=== PATIENT | male | born 1980 | race Caucasian/White ===

== ENCOUNTER 2019-08-25 10:07 | Outpatient (CLI) | payer BC, SELFPAY ==
--- NOTE | 2019-08-25 | XR_ITS ---
WS: [id number] LUMBAR SPINE TECHNIQUE: 5 views of the lumbar spine CLINICAL INFORMATION: ACUTE LOW BACK PAIN W SCIATICA; HX OF SURGERY COMPARISON: None. FINDINGS: Five [id number] lumbar vertebral bodies. Mild lumbar curve convex left. Slight reversal the norm al cervical lordosis. No instability on flexion-extension. Disc space heights are well preserved. No compression fractures. No visualized pars defects. No spond ylolisthesis. Visualized sacroiliac joints are normal. Normal visualized soft tissues. Partially visu alized bowel gas pattern is normal. XR/XR lumbar spine min 4V [id number] IMPRESSION: No instability on flexion-extension
== END 2019-08-25 10:08 | disposition home or self-care (01) ==
LOC: RADOUTREAD 10:53
PROVIDERS: Family Provider Family Medicine; PCP Family Medicine; Visit Provider Family Medicine
DX: Z76.89 Persons encountering health services in other specified circumstances (principal)

== ENCOUNTER 2019-12-08 09:03 | Outpatient (CLI) | payer BC, SELFPAY ==
--- NOTE | 2019-12-08 09:21 | MR_ITS ---
WS: [id number] MRI LUMBAR SPINE NONCONTRAST TECHNIQUE: Sagittal T1, T2 and STIR imaging. Axial T1 and T2 imaging. CLINICAL INFORMATION: LOW BACK PAIN/HX OF L-SPINE SURGERY COMPARISON: MRI lumbar spine May 14, 2018 FINDINGS: Mild lumbar curve. No acute compression. Mild disc bulging L5-S1. No high-grade central canal stenosi s. L1-L2: Normal L2-L3: Mild annular bulging. Mild facet arthropathy. Mild left and no significant right foraminal micky rowing. Spinal canal is patent. Mild facet arthropathy. L3-L4: Minimal annular bulging. Mild left foraminal narrowing. Spinal canal and foramen are patent. M ild facet arthropathy. L4-L5: Mild annular bulging. Mild right greater than left foraminal narrowing. Mild facet arthropathy . Spinal canal is patent. L5-S1: Small shallow central disc protrusion with a tiny annular fissure. Encroachment traversing S1 nerve roots bilaterally with narrowing of the subarticular recess. Spinal canal is patent. Mild bilat eral foraminal narrowing right greater than left. Moderate facet arthropathy. Visualized pelvic bony structures: Normal. Paravertebral soft tissues: Normal. MR/MR lumbar spine wo con* [id number] IMPRESSION: 1. Mild lumbar curve. No acute compression. No high-grade central canal stenos is. 2. Shallow central disc protrusion L5-S1 with encroachment traversing S1 nerve roots bilaterally. 3. Mild right greater than left L5-S1 foraminal narrowing. 4. Mild left L3-4 and right L4-5 foraminal narrowing. 5. Mild to moderate facet arthropathy worse L4-5 and L5-S1.
== END 2019-12-08 09:04 | disposition home or self-care (01) ==
LOC: RADWPI 09:21
PROVIDERS: Family Provider Family Medicine; PCP Family Medicine; Visit Provider Nurse Practitioner
DX: M96.1 Postlaminectomy syndrome, not elsewhere classified (principal); M51.27 Other intervertebral disc displacement, lumbosacral region; M48.061 Spinal stenosis, lumbar region without neurogenic claudication; M48.07 Spinal stenosis, lumbosacral region; M47.817 Spondylosis without myelopathy or radiculopathy, lumbosacral region
CPT/HCPCS: 72148; A9579

== ENCOUNTER 2020-04-20 12:00 | Outpatient (CLI) | payer BC, SELFPAY | END 2020-04-20 12:01 | disposition home or self-care (01) | LOC: SLEEP 04-21 12:04 | PROVIDERS: Family Provider Family Medicine; PCP Family Medicine; Visit Provider Anesthesiology Pain Medicine | DX: G47.10 Hypersomnia, unspecified (principal) | CPT/HCPCS: G0399 ==

== ENCOUNTER 2021-03-10 09:25 | Emergency (ER) | payer OTHER, SELFPAY ==
--- NOTE | 2021-03-10 09:26 | ECG_ITS ---
[facility] Test Date: 2021-03-10 Pat Name: Balwinder Solo Department: Room: Gender: Male Pet Care Technician: : 1980 Requested By: Jacques Gutierrez Order Number: [id number] Sonny MD: Kati Rascon M.D. Measurements Intervals Edelstein Rate: 72 P: 32 NC: 163 QRS: -3 QRSD: 81 T: 69 QT: 344 QTc: 379 Interpretive Statements SINUS RHYTHM NONSPECIFIC T-WAVE ABNORMALITY No previous ECG available for comparison Electronically Signed On 03-12-2021 19:18:31 CDT by Kati Rascon M.D. [id number]
--- NOTE | 2021-03-10 09:27 | CTR_ITS ---
PROCEDURE INFORMATION: Exam: CT Head Without Contrast Exam date and time: 03/10/2021 9:27 AM Age: 40 years old Clinical indication: Pain; Headache; Additional info: New onset seizures/headache TECHNIQUE: Imaging protocol: Computed tomography of the head without contrast. Radiation optimization: All CT scans at this facility use at least one of these dose optimization techniques: automated exposure control; mA and/or kV adjustment per patient size (includes targeted exams where dose is matched to clinical indication); or iterative reconstruction. COMPARISON: No relevant prior studies available. RADIATION DOSE METRICS: Total DLP (mGy-cm): 740.49 FINDINGS: Brain: No intracranial hemorrhage, edema or other acute abnormalities are seen in the brain. There is no mass effect or midline shift. Cerebral ventricles: No ventriculomegaly. Paranasal sinuses: Visualized sinuses are unremarkable. No fluid levels. Mastoid air cells: Visualized mastoid air cells are well aerated. Bones/joints: Unremarkable. No acute fracture. Soft tissues: Unremarkable. CT/CT head wo con* [id number] IMPRESSION: No acute intracranial abnormality. Radiation Dose CTDIVOL = (mGy): DLP = 740.49 (mGy-cm)
--- NOTE | 2021-03-10 09:28 | W.ED.SEIZURE ---
HPI - Seizure General: Chief Complaint: Headache Stated Complaint: NEW ONSET SEIZURES;HAVING H/A-PCP WANTED CHECKED Time Seen by Provider: 03/10/21 09:26 History of Present Illness: HPI Narrative: 40 yo male presents with complaints of recurrent seizures ove rht last several months. Patient has seen his primary care doctor and they have arranged for further work-up including MRI and EEG. He relates that all of these episodes occur when he is asleep. His states that she can abbreviate or minimize episodes if she attempts to wake him up before they actually happened he will grasp or thrash around a little bit before they start if she is able to wake him up she says are much briefer. He has about a 5 to 8-minute postictal phase per her report. Today presents with headaches as well. There is no history of any head trauma no recent change in medications he does not use excessive amounts of oxtl-dwe-vdshghd decongestants caffeine's energy drinks etc. Denies any drug or alcohol use on a regular basis. MD complaint: seizure Onset (ago): month(s) Description of Episode: tonic-clonic movement Witnessed: Yes - by Bystander Trauma: No Seizure History: No Place: Home Associated symptoms: Deny chest pain, chills, fever(s) or malaise Treatments prior to arrival: none Review of Systems Const: Denies: fever(s), chills, body aches, change in appetite, fatigue or malaise ENMT: Denies: throat pain, ear or mastoid pain, nasal discharge or nasal congestion Card: Denies: chest pain, edema, dyspnea on exertion or orthopnea Resp: Denies: dyspnea, productive cough or non-productive cough GI: Denies: abdominal pain, nausea, vomiting, hematemesis, coffee ground emesis, diarrhea, constipation, bloating, hematochezia or melena : Denies: flank pain, dysuria, urinary frequency or urinary urgency Skin/Breast: Denies: rash or pruritus Physical Exam Const: COMMON NORMALS: no acute distress GENERAL APPEARANCE: cooperative and comfortable ORIENTATION/CONSCIOUSNESS: Yes awake, Yes oriented to person, Yes oriented to place and Yes oriented to time HENMT: COMMON NORMALS: normocephalic, atraumatic, hearing grossly normal bilaterally, external ears normal, EAC's normal, TM's normal bilaterally, Normal nasal mucous membranes and turbinates present, moist oral mucous membranes and oropharynx normal HEAD & SCALP: normocephalic and atraumatic NOSE: Normal nasal mucous membranes and turbinates present EXTERNAL EAR: Yes external ears normal EXTERNAL AUDITORY CANAL: EAC's normal TYMPANIC MEMBRANE: TM's normal bilaterally Eye: COMMON NORMALS: Equal, round and reactive pupils present, EOMs intact bilaterally, conjunctivae normal and no scleral icterus CONJUNCTIVA: Yes conjunctivae normal PUPIL: Yes Equal, round and reactive pupils present Neck/C-Spine: COMMON NORMALS: full ROM, no lymphadenopathy, supple and no JVD Lymph: LYMPHATIC: no lymphadenopathy noted and no lymphedema noted Resp: COMMON NORMALS: normal respiratory effort, No retractions, No use of accessory muscles and clear to auscultation bilaterally AUSCULTATION: clear to auscultation bilaterally Cardio: COMMON NORMALS: no JVD, regular rate, regular rhythm and No murmurs present (Cardio) RATE: regular rate RHYTHM: regular rhythm GI: COMMON NORMALS: Soft to palpation and No hepatosplenomegaly present AUSCULTATION: Yes normoactive bowel sounds PALPATION: Yes Soft to palpation, No Tenderness to palpation present (GI), No Guarding due to palpation present (GI) and Yes No hepatosplenomegaly present Extremity: COMMON NORMALS: normal to inspection, capillary refill normal, no clubbing, cyanosis or edema, no calf tenderness and no pedal edema Neuro: SENSORIUM/ORIENTATION: Yes oriented to person, Yes oriented to place and Yes oriented to time Skin: COMMON NORMALS: no rashes or lesions noted GENERAL SKIN EXAM: no rashes or lesions noted Course Vital Signs: Vital signs: Vital Signs Temperature 98.7 F 03/10/21 09:36 Pulse Rate 59 L 03/10/21 13:33 Respiratory Rate 16 03/10/21 13:33 Blood Pressure 104/66 03/10/21 13:33 Pulse Oximetry 97 03/10/21 13:33 MDM - Seizure MDM Narrative: Medical decision making narrative: Headache improved. At this point I will hold off on starting him on antiseizure medications I think completing work-up as prescribed by Dr. Flores would be best. It does seem a little bit questionable with his report from the of altering the course of the seizures when she wakes him up. If he has further problems return. Reviewed labs and x-rays as found on the chart. Lab Data: Labs: Lab Results 03/10/21 03/10/21 03/10/21 Range/Units 09:55 09:55 10:07 WBC 6.7 (4.0-10.0) 10^3/ uL RBC 4.42 (4.1-5.3) 10^6/u L Hgb 13.6 (11.7-16.6) g/dL Hct 41.5 L (42.0-52.0) % MCV 93.9 (80-94) fl MCH 30.8 (28.0-34.0) pg MCHC 32.8 (30.0-36.0) g/dL RDW 13.2 (12.1-15.1) % Plt Count 326 (130-400) 10^3/c mm MPV 9.7 (7.4-10.4) fL Neut % (Auto) 59.3 % Lymph % (Auto) 28.1 % [place] % (Auto) 6.8 % Eos % (Auto) 4.7 % Baso % (Auto) 0.8 % Neut # (Auto) 3.96 (1.8-7.7) 10^3/u L Lymph # (Auto) 1.9 (0.8-4.8) 10^3/u L [place] # (Auto) 0.5 (0.2-0.9) 10^3/u L Eos # (Auto) 0.3 (0.0-0.8) 10^3/u L Baso # (Auto) 0.1 (0.0-0.1) 10^3/u L Nucleated RBC % (a uto) 0 % Nucleated RBCs # 0.0 /100WBC Sodium Cancelled Potassium Cancelled Chloride Cancelled Carbon Dioxide Cancelled Anion Gap Cancelled BUN Cancelled Creatinine Cancelled GFR Calculation Cancelled Glucose Cancelled Calculated Osmolal ity Cancelled Calcium Cancelled Total Bilirubin Cancelled AST Cancelled ALT Cancelled Alkaline Phosphata se Cancelled Creatine Kinase Cancelled Total Protein Cancelled Albumin Cancelled Globulin Cancelled Urine Color Yellow (Yellow) Urine Appearance Clear (CLEAR) Urine pH 5 (5-7) Ur Specific Gravit y 1.020 (1.005-1.030) Urine Protein Neg (Negative) Urine Glucose (UA) Norm (Normal) Urine Ketones Negative (Negative) Urine Blood Neg (Negative) Urine Nitrate Negative (Negative) Urine Bilirubin Neg (Negative) Urine Urobilinogen 4 H (Negative) mg/dL Ur Leukocyte Crystal ase Negative (Negative) Urine Opiates Scre en (Negative) ng/mL Ur Barbiturates Sc reen (Negative) ng/mL Ur Phencyclidine S crn (Negative) ng/mL Ur Amphetamines Sc reen (Negative) ng/mL U Benzodiazepines Scrn (Negative) ng/mL Urine Cocaine Scre en (Negative) ng/mL U Marijuana (THC) Screen (Negative) ng/mL Ethyl Alcohol Cancelled 03/10/21 03/10/21 Range/Units 10:07 12:30 WBC (4.0-10.0) 10^3/ uL RBC (4.1-5.3) 10^6/u L Hgb (11.7-16.6) g/dL Hct (42.0-52.0) % MCV (80-94) fl MCH (28.0-34.0) pg MCHC (30.0-36.0) g/dL RDW (12.1-15.1) % Plt Count (130-400) 10^3/c mm MPV (7.4-10.4) fL Neut % (Auto) % Lymph % (Auto) % [place] % (Auto) % Eos % (Auto) % Baso % (Auto) % Neut # (Auto) (1.8-7.7) 10^3/u L Lymph # (Auto) (0.8-4.8) 10^3/u L [place] # (Auto) (0.2-0.9) 10^3/u L Eos # (Auto) (0.0-0.8) 10^3/u L Baso # (Auto) (0.0-0.1) 10^3/u L Nucleated RBC % (a uto) % Nucleated RBCs # /100WBC Sodium 140 Potassium 3.9 Chloride 106 Carbon Dioxide 25 Anion Gap 12.9 BUN 9 Creatinine 0.8 GFR Calculation 107.6 Glucose 95 Calculated Osmolal ity 288 Calcium 8.1 L Total Bilirubin 0.2 AST 22 ALT 33 Alkaline Phosphata se 107 Creatine Kinase 98 Total Protein 6.4 L Albumin 3.8 Globulin 2.6 Urine Color (Yellow) Urine Appearance (CLEAR) Urine pH (5-7) Ur Specific Gravit y (1.005-1.030) Urine Protein (Negative) Urine Glucose (UA) (Normal) Urine Ketones (Negative) Urine Blood (Negative) Urine Nitrate (Negative) Urine Bilirubin (Negative) Urine Urobilinogen (Negative) mg/dL Ur Leukocyte Crystal ase (Negative) Urine Opiates Scre en Positive H (Negative) ng/mL Ur Barbiturates Sc reen Negative (Negative) ng/mL Ur Phencyclidine S crn Negative (Negative) ng/mL Ur Amphetamines Sc reen Negative (Negative) ng/mL U Benzodiazepines Scrn Negative (Negative) ng/mL Urine Cocaine Scre en Negative (Negative) ng/mL U Marijuana (THC) Screen Negative (Negative) ng/mL Ethyl Alcohol < 10 Discharge Plan Discharge Patient Disposition: Home Clinical Impression: Headache, Seizure Condition: Stable Prescriptions: New promethazine 25 mg tablet 12.5 mg PO Q6H PRN (Reason: headache) Qty: 20 RF: 0 No Action hydrocodone-acetaminophen 10-325 mg Tablet 1 tab PO Q8H PRN (Reason: Pain) RF: 0 Flexeril 5 mg Tablet 5 mg PO TID PRN (Reason: Pain) RF: 0 Cymbalta 60 mg Capsule,Delayed Release(Dr/Ec) 60 mg PO DAILY RF: 0 Discharge Orders: Discharge ED (Routine); Ordered 03/10/21 Ordered By: Jacques Cardenas Referrals: Nolan Flores MD [Primary Care Provider] - Discharge Diet: Usual diet Discharge Activity: Increase activity as tolerated Patient Instructions: Opioid Safety Activity Restrictions/Additional Instructions: Primary care doctor as scheduled. Coding Level of Care Code ED Language Specialist for [employer]og Fwd Exam Comprehensive
[2021-03-10 09:36] VITALS: BP 134/106; PULSE 82; RESP 16; TEMP 37.1; O2SAT 100; BMI 24.7
[2021-03-10 10:04] VITALS: BP 136/102; PULSE 72; RESP 18; O2SAT 99
[2021-03-10 10:07] LABS: Basophils # 0.1 10^3/uL (0.0-0.1); Basophils % 0.8 %; Eosinophils # 0.3 10^3/uL (0.0-0.8); Eosinophils % 4.7 %; Hematocrit 41.5 % (42.0-52.0); Hemoglobin 13.6 g/dL (11.7-16.6); Lymphocytes # 1.9 10^3/uL (0.8-4.8); Lymphocytes % 28.1 %; Mean Corpuscular HGB Conc 32.8 g/dL (30.0-36.0); Mean Corpuscular Hemoglobin 30.8 pg (28.0-34.0); Mean Corpuscular Volume 93.9 fl (80-94); Mean Platelet Volume 9.7 fL (7.4-10.4); Monocytes # 0.5 10^3/uL (0.2-0.9); Monocytes % 6.8 %; Neutrophils # 3.96 10^3/uL (1.8-7.7); Neutrophils % 59.3 %; Nucleated Red Blood Cells % 0 %; Platelet Count 326 10^3/cmm (130-400); Red Blood Count 4.42 10^6/uL (4.1-5.3); Red Cell Distribution Width 13.2 % (12.1-15.1); White Blood Count 6.7 10^3/uL (4.0-10.0)
[2021-03-10] MEDS: ketorolac 30 mg/mL INJ IVP (10:52)
[2021-03-10] MEDS: sodium chloride 0.9% 1,000 ML 999 ML IV (10:52)
[2021-03-10] MEDS: promethazine 25 mg/mL SDV 1 mL IM (10:52)
[2021-03-10 11:00] VITALS: BP 127/80; PULSE 70; RESP 18; O2SAT 99
[2021-03-10 11:14] LABS: Add Urine Microscopic? NO; Charge for UA Resulting for Rev
[2021-03-10] MEDS: diphenhydrAMINE 50 mg/mL SDV 1mL IVP (11:24)
[2021-03-10] MEDS: morphine 4 mg/mL SDV 1 mL IVP (11:24)
[2021-03-10 11:25] LABS: Amphetamines Screen Urine Negative (Negative); Barbiturates Screen Urine Negative (Negative); Benzodiazepines Screen Urine Negative (Negative); Cocaine Screen Urine Negative (Negative); Opiate Screen Urine Positive (Negative); PCP Screen Urine Negative (Negative); THC Screen Urine Negative (Negative)
[2021-03-10 11:27] LABS: Bilirubin Urine Neg (Negative); Blood Urine Neg (Negative); Glucose Urine UA Norm (Normal); Ketones Urine Negative (Negative); Leukocyte Esterase Urine Negative (Negative); Nitrate Urine Negative (Negative); Protein Urine Neg (Negative); Urine Appearance Clear (CLEAR); Urine Color Yellow (Yellow); Urobilinogen Urine 4 mg/dL (Negative); pH Urine 5 (5-7)
[2021-03-10 12:00] VITALS: BP 119/77; PULSE 68; RESP 18; O2SAT 97
[2021-03-10 13:04] LABS: Alanine Aminotransferase 33 U/L (0-41); Albumin Level 3.8 g/dL (3.5-5.2); Alkaline Phosphatase 107 IU/L (40-130); Anion Gap 12.9 (5-19); Aspartate Amino Transferase 22 U/L (0-40); Blood Urea Nitrogen 9 mg/dL (6-20); Calcium 8.1 mg/dL (8.5-10.5); Carbon Dioxide 25 mmol/L (22-29); Chloride 106 mmol/L (98-107); Creatine Phosphokinase 98 U/L (39-308); Creatinine Clr Calc Pharmacy 151.8935; Globulin 2.6 g/dL (1.3-4.6); Glomerular Filtration Rate 107.6 mL/min (90-130); Glucose 95 mg/dL (65-115); Osmolality Calculated 288 mOsm/kg (285-295); Potassium 3.9 mmol/L (3.5-5.1); Sodium 140 mmol/L (136-145); Total Bilirubin 0.2 mg/dL (0.15-1.2); Total Protein 6.4 g/dL (6.6-8.7)
[2021-03-10 13:11] LABS: Alcohol Level < 10 mg/dL (0-10)
[2021-03-10 13:33] VITALS: BP 104/66; PULSE 59; RESP 16; O2SAT 97
== END 2021-03-10 13:34 | disposition home or self-care (01) ==
PROVIDERS: Emergency Provider Family Medicine; PCP Family Medicine
DX: R51.9 Headache, unspecified (principal); R56.9 Unspecified convulsions
CPT/HCPCS: 36415; 70450; 80053; 80306; 80307; 81003; 82550; 85025; 93005; 96361; 96372; 96374; 96375; 99284; J1200; J1885; J2270; J2550; J7030

== ENCOUNTER 2021-03-12 11:49 | Outpatient (CLI) | payer OTHER, SELFPAY ==
--- NOTE | 2021-03-12 12:00 | MR_ITS ---
WS: [id number] MRI HEAD WITH CONTRAST TECHNIQUE: Sagittal T1, T2 axial, T2 axial FLAIR, axial susceptibility weighted imaging, axial diffus ion weighted images, and coronal T2 images were obtained. Pre and post-T1 axial and post T1 coronal i mages. ADC and FSPGR images. CLINICAL INFORMATION: NEW ONSET SEIZURE COMPARISON: CT March 10, 2021 FINDINGS: No evidence of restricted diffusion to suggest acute ischemia. Ventricular system and basal cisterns are patent. No suspicious intracranial signal abnormalities. Normal posterior fossa. Normal vascular flow voids at the skull base. No extra-axial fluid collections. No evidence of mass or mass effect. No hemosiderin on susceptibly weighted images. Normal optic chiasm and pituitary infundibulum. Tempor al lobes and hippocampal formations are normal in appearance. No evidence of mesial temporal sclerosis. No signal abnormalities mesial temporal lobes. MR/MR head wo/w con [id number] IMPRESSION: 1. No evidence of restricted diffusion to suggest acute ischemia. 2. No suspicious intracranial signal abnormalities. Normal sparrow-white differen tiation. 3. Temporal lobes and hippocampal formations are normal in appearance. No sign al abnormalities in the mesial temporal lobes. 4. No abnormal intracranial enhancement. 5. Normal dural venous sinuses.
[2021-03-12] MEDS: gadobenate dimeglumine 20 mL vial IV (13:06)
== END 2021-03-12 11:50 | disposition home or self-care (01) ==
PROVIDERS: PCP Family Medicine; Visit Provider Family Medicine
DX: R56.9 Unspecified convulsions (principal)
CPT/HCPCS: 70553; A9577

== ENCOUNTER → 2021-03-21 09:38 | Outpatient (BNVA) | payer OTHER, SELFPAY | PROVIDERS: PCP Family Medicine; Visit Provider Specialist | DX: G40.909 Epilepsy, unspecified, not intractable, without status epilepticus (principal); G40.309 Generalized idiopathic epilepsy and epileptic syndromes, not intractable, without status epilepticus; Z87.891 Personal history of nicotine dependence | CPT/HCPCS: 95816; 99205 ==

== ENCOUNTER 2021-03-26 22:25 | Emergency (ER) | payer OTHER, SELFPAY ==
[2021-03-26 23:01] VITALS: BP 135/87; PULSE 101; RESP 20; TEMP 36.9; O2SAT 98; BMI 25.7
--- NOTE | 2021-03-27 00:07 | ED_ITS ---
HPI - Back Pain/Injury General: Chief Complaint: Back Pain/Injury Stated Complaint: Lower Back Pain Time Seen by Provider: 03/27/21 00:07 History of Present Illness: HPI Narrative: 40-year-old male patient comes in today with complaints of low back pain. Patient has a history of a bulging disc in his lumbar L5-S1 area. Patient has had previous surgery before. Patient denies any loss of bowel or bladder control. Patient is alert oriented. Patient appears well. Patient appears in mild to moderate pain. Review of Systems General: Reports: 10 or more systems reviewed and unremarkable except in HPI and below Musc: Reports: other (Low back pain) PFS ED PFSH: Social History Smoking and tobacco status: former smoker History of recent travel: No Physical Exam Const: COMMON NORMALS: no acute distress and patient oriented x3 GENERAL APPEARANCE: cooperative HENMT: COMMON NORMALS: normocephalic and Normal external nose present HEAD & SCALP: normal to inspection and normocephalic NOSE: Normal external nose present MOUTH: Normal oral and palatal mucosa present Eye: GENERAL EYE: appearance normal, both eyes and all related structures Neck/C-Spine: COMMON NORMALS: full ROM Chest: COMMONS NORMALS: normal inspection of the chest Resp: COMMON NORMALS: normal respiratory effort EFFORT & INSPECTION: Yes able to speak in complete sentences Cardio: COMMON NORMALS: regular rate and regular rhythm RATE: regular rate RHYTHM: regular rhythm GI: COMMON NORMALS: non-tender Back/Pelvis: THORACIC SPINE/UPPER BACK: Yes normal to inspection LUMBAR SPINE/LOWER BACK: Yes lumbar spinal tenderness Lumbar spinal tenderness location: L5 and Yes paraspinal muscle spasm Extremity: COMMON NORMALS: normal to inspection Neuro: COMMON NORMALS: patient oriented x3 and moves all extremities Psych: COMMON NORMALS: mental status grossly normal and cooperative Skin: COMMON NORMALS: no rashes or lesions noted GENERAL SKIN EXAM: no rashes or lesions noted Course Vital Signs: Vital signs: Vital Signs Temperature 98.5 F 03/26/21 23:01 Pulse Rate 101 H 03/26/21 23:01 Respiratory Rate 20 H 03/26/21 23:01 Blood Pressure 135/87 03/26/21 23:01 Pulse Oximetry 98 03/26/21 23:01 MDM - Back Pain/Injury MDM Narrative: Medical decision making narrative: Patient comes in for low back pain. On exam patient has tenderness and midline lumbar tenderness on palpation of the L5-S1. Differential diagnosis includes intervertebral disc disease, facet arthropathy, lumbar strain. No sign of cauda equina syndrome was noted. Patient probably has exacerbation of his chronic disc disease. Patient was given a Toradol 30 mg and 60 mg orphenadrine. Patient was also given 10 mg dexamethasone p.o. Patient will be continued on Celebrex 200 mg twice a day for the next 10 days. Recommended patient follow-up with primary care or spinal specialist for further evaluation and treatment. Patient reported understanding agreed to plan. Discharge Plan Discharge Patient Disposition: Home Clinical Impression: Lumbar radiculopathy Condition: Stable Prescriptions: New celecoxib 200 mg capsule 200 mg PO BID Qty: 20 RF: 0 No Action midazolam 5 mg/spray (0.1 mL) spray,non-aerosol 1 spray intranasal ONCE Qty: 1 RF: 3 divalproex [Depakote] 500 mg tablet,delayed release (DR/EC) 1,000 mg PO ONCE Qty: 60 RF: 2 hydrocodone-acetaminophen 10-325 mg Tablet 1 tab PO Q8H PRN (Reason: Pain) RF: 0 Flexeril 5 mg Tablet 5 mg PO TID PRN (Reason: Pain) RF: 0 Cymbalta 60 mg Capsule,Delayed Release(Dr/Ec) 60 mg PO DAILY RF: 0 promethazine 25 mg tablet 12.5 mg PO Q6H PRN (Reason: headache) Qty: 20 RF: 0 Discharge Orders: Discharge ED (Routine); Ordered 03/27/21 Ordered By: Bladimir Rivera Discharge Diet: Usual diet Discharge Activity: Increase activity as tolerated Patient Instructions: Chronic Back Pain (ED), Opioid Safety Activity Restrictions/Additional Instructions: Activity as tolerated. Drink plenty of water with medication. Gentle stretching and range of motion exercises. Follow-up with primary care for further instruction. Return to the ER for new concerns. Coding Level of Care Code ED Treating And Pumping Supervisor for Tomás Farah
[2021-03-27] MEDS: dexamethasone 4 mg Tablet 10 MG PO (00:36)
[2021-03-27] MEDS: orphenadrine 30 mg/mL Inj 2 mL 60 MG IM (00:37)
[2021-03-27] MEDS: ketorolac 30 mg/mL INJ IM (00:37)
[2021-03-27 00:46] VITALS: BP 135/87; PULSE 92; RESP 16; TEMP 36.9; O2SAT 99
== END 2021-03-27 00:47 | disposition home or self-care (01) ==
PROVIDERS: Emergency Provider Nurse Practitioner Family
DX: M54.16 Radiculopathy, lumbar region (principal); Z87.891 Personal history of nicotine dependence
CPT/HCPCS: 96372; 99283; J1885; J2360; J8540

== ENCOUNTER → 2021-04-17 15:50 | Outpatient (BNVA) | payer OTHER, SELFPAY | PROVIDERS: PCP Family Medicine; Visit Provider Specialist | DX: G40.309 Generalized idiopathic epilepsy and epileptic syndromes, not intractable, without status epilepticus (principal); M51.36 Other intervertebral disc degeneration, lumbar region; F17.220 Nicotine dependence, chewing tobacco, uncomplicated | CPT/HCPCS: 99214 ==

== ENCOUNTER 2021-07-16 22:18 | Emergency (ER) | payer OTHER, MEDICAID, SELFPAY ==
[2021-07-16 22:26] VITALS: BP 106/73; PULSE 86; RESP 16; TEMP 36.3; O2SAT 99; BMI 24.3
--- NOTE | 2021-07-16 22:33 | W.ED.BACK ---
HPI - Back Pain/Injury General: Chief Complaint: Back Pain/Injury Stated Complaint: Injury Lower Back Pain Time Seen by Provider: 07/16/21 22:30 History of Present Illness: HPI Narrative: 40-year-old male patient comes in today with complaints of low back pain in the area of the sacrum. Patient does have a history of spine surgery at L5-S1 area in 2018. Since then patient is always had some numbness going down his left leg. Patient states sometimes his leg will go out from under him causing him to fall. Patient states that this occurred this afternoon and since then he has had pain and discomfort to the sacral area of his low back. Patient is alert and oriented. Patient appears well. Patient appears in moderate pain. Review of Systems Musc: Reports: back pain PFSH ED PFSH: Social History Smoking and tobacco status: current every day smoker smokeless tobacco History of recent travel: No Physical Exam Const: COMMON NORMALS: no acute distress HENMT: COMMON NORMALS: atraumatic HEAD & SCALP: atraumatic Neck/C-Spine: COMMON NORMALS: full ROM Resp: COMMON NORMALS: normal respiratory effort and clear to auscultation bilaterally AUSCULTATION: clear to auscultation bilaterally Cardio: COMMON NORMALS: regular rate and regular rhythm RATE: regular rate RHYTHM: regular rhythm Back/Pelvis: SACRUM: tenderness Extremity: COMMON NORMALS: normal to inspection Skin: COMMON NORMALS: no rashes or lesions noted GENERAL SKIN EXAM: no rashes or lesions noted Course Vital Signs: Vital signs: Vital Signs Temperature 97.4 F L 07/16/21 22:26 Pulse Rate 86 07/16/21 22:26 Respiratory Rate 16 07/16/21 22:26 Blood Pressure 106/73 07/16/21 22:26 Pulse Oximetry 99 07/16/21 22:26 MDM - Back Pain/Injury MDM Narrative: Medical decision making narrative: Patient comes in for evaluation of injury after slipping and falling on the ground today. Patient reports pain in his sacrum. On exam patient has tenderness to the sacral area versus the L5-S1 area. Patient has a prior history of intervertebral disc disease with surgical repair. Differential diagnosis includes but not limited to vertebral fracture, sacral fracture, contusion, sprain. X-rays noted no acute injuries. Patient was given a dose of Toradol and orphenadrine in the ER. Prescription for diclofenac was written for patient for further pain and inflammation. Patient already has hydrocodone at home for pain control. Patient reported understanding of care plan with need for follow-up with primary care for further evaluation as needed Discharge Plan Discharge Patient Disposition: Home Clinical Impression: Fall from ground level, Sacral back pain Condition: Stable Prescriptions: New diclofenac sodium 75 mg tablet,delayed release (DR/EC) 75 mg PO BID Qty: 20 RF: 0 No Action levetiracetam [Keppra XR] 750 mg tablet extended release 24 hr 1,500 mg PO BID Qty: 60 RF: 3 divalproex [Depakote] 500 mg tablet,delayed release (DR/EC) 1,000 mg PO ONCE Qty: 60 RF: 3 hydrocodone-acetaminophen 10-325 mg Tablet 1 tab PO Q8H PRN (Reason: Pain) RF: 0 Cymbalta 60 mg Capsule,Delayed Release(Dr/Ec) 60 mg PO DAILY RF: 0 Discharge Orders: Discharge ED (Routine); Ordered 07/16/21 Ordered By: Bladimir Rivera Referrals: Nolan Flores MD [Primary Care Provider] - Discharge Diet: Usual diet Discharge Activity: Increase activity as tolerated Patient Instructions: Back Pain (ED), Opioid Safety Activity Restrictions/Additional Instructions: Activity as tolerated. Use ice or heat to the area for further comfort. Follow-up with primary care for further evaluation and treatment. Return to the ER for new concerns. Coding Level of Care Code ED Carburizing Furnace Operator for Tomás Fwaraceli Exam Comprehensive
--- NOTE | 2021-07-16 22:47 | XRR_ITS ---
PROCEDURE INFORMATION: Exam: XR Lumbosacral Spine Exam date and time: 07/16/2021 10:47 PM Age: 40 years old Clinical indication: Pain and injury or trauma; Blunt trauma (contusions or hematomas); Low back pain; Injury details: Fall onto back, HX of herniated discs; Additional info: Fall, injury TECHNIQUE: Imaging protocol: XR of the lumbosacral spine. Views: 2 or 3 views. Total images: 3 COMPARISON: No relevant prior studies available. FINDINGS: Bones/joints: Normal. No acute fracture. Normal alignment. Intervertebral disc space heights preserved throughout. No visible spondylolysis or spondylolisthesis. No visible facet arthrosis. Pedicles intact. Soft tissues: Unremarkable. XR/XR lumbar spine 2-3V* [id number] IMPRESSION: No acute findings.
--- NOTE | 2021-07-16 22:47 | XRR_ITS ---
PROCEDURE INFORMATION: Exam: XR Sacrum and Coccyx, 2 or More Views Exam date and time: 07/16/2021 10:47 PM Age: 40 years old Clinical indication: Pain and injury or trauma; Blunt trauma (contusions or hematomas); Pain in coccyx area; Injury details: Fall onto back, HX herniated discs; Additional info: Fall injury TECHNIQUE: Imaging protocol: XR of the sacrum and coccyx, 2 or more views. Total images: 3 COMPARISON: No relevant prior studies available. FINDINGS: Bones/joints: Normal. No acute fracture. Soft tissues: Normal. XR/XR sacrum coccyx min 2V [id number] IMPRESSION: No acute findings.
[2021-07-16] MEDS: orphenadrine 30 mg/mL Inj 2 mL 60 MG IM (22:59)
[2021-07-16] MEDS: ketorolac 30 mg/mL INJ IM (22:59)
[2021-07-16 23:40] VITALS: RESP 18
== END 2021-07-16 23:42 | disposition home or self-care (01) ==
PROVIDERS: Emergency Provider Nurse Practitioner Family; PCP Family Medicine
DX: M54.89 Other dorsalgia (principal); F17.210 Nicotine dependence, cigarettes, uncomplicated
CPT/HCPCS: 72100; 72220; 96372; 99283; J1885; J2360

== ENCOUNTER 2021-08-22 12:02 | Outpatient (CLI) | payer OTHER, MEDICAID, SELFPAY ==
--- NOTE | 2021-08-22 12:13 | MR_ITS ---
WS: [id number] MRI LUMBAR SPINE NONCONTRAST TECHNIQUE: Sagittal T1, T2 and STIR imaging. Axial T1 and T2 imaging. CLINICAL INFORMATION: LEFT FOOT DROP COMPARISON: MRI December 08, 2019 FINDINGS: Mild lumbar curve. No acute compression. Shallow central protrusion L5-S1 with slight contact of the S1 nerve roots. L1-L2: Normal. L2-L3: Mild annular bulging. Slight effacement of ventral thecal sac. Spinal canal and foramen are pa tent. Mild facet arthropathy. L3-L4: Mild annular bulging. Spinal canal and foramen are patent. Mild facet arthropathy. L4-L5: Mild annular bulging with slight effacement of ventral thecal sac. Slight narrowing of the RIG HT greater than LEFT subarticular recess. Mild facet arthropathy. Spinal canal and foramen are patent . L5-S1: Shallow central disc protrusion with slight impingement on traversing S1 nerve roots bilateral ly. Small annular fissure. Mild bilateral foraminal narrowing. Mild facet arthropathy. Visualized pelvic bony structures: Normal. Paravertebral soft tissues: Normal. Shallow central protrusion L5-S1 slightly more prominent compared to December 08, 2019. Annular bulging w ith narrowing of the RIGHT subarticular recess L4-L5 slightly progressed. Otherwise no significant ch keya compared to previous. MR/MR lumbar spine wo con* [id number] IMPRESSION: 1. Mild lumbar curve. No acute compression. No high-grade central canal stenos is. 2. Shallow central protrusion L5-S1 with slight effacement of ventral thecal s ac. Slight contact of the traversing S1 nerve roots bilaterally. 3. Mild bilateral L5-S1 foraminal narrowing worse in the RIGHT with encroachme nt on the exiting RIGHT greater than LEFT L5 nerve roots. 4. Mild annular bulging L4-L5 with narrowing of the RIGHT subarticular recess and encroachment traversing RIGHT L5 nerve root. 5. Mild RIGHT L4-L5 foraminal narrowing. 6. Mild facet arthropathy L3-L4 and L4-L5.
== END 2021-08-22 12:03 | disposition home or self-care (01) ==
PROVIDERS: PCP Family Medicine; Visit Provider Family Medicine
DX: M21.372 Foot drop, left foot (principal); M51.27 Other intervertebral disc displacement, lumbosacral region; M51.26 Other intervertebral disc displacement, lumbar region; M47.816 Spondylosis without myelopathy or radiculopathy, lumbar region
CPT/HCPCS: 72148

== ENCOUNTER → 2021-11-28 11:04 | Outpatient (BNVA) | payer MEDICAID, SELFPAY | PROVIDERS: PCP Family Medicine; Visit Provider Specialist | DX: R56.9 Unspecified convulsions (principal) | CPT/HCPCS: 99213 ==

== ENCOUNTER 2021-12-17 17:34 | Emergency (ER) | payer MEDICAID, SELFPAY ==
--- NOTE | 2021-12-17 18:13 | XRR_ITS ---
PROCEDURE INFORMATION: Exam: XR Lumbosacral Spine Exam date and time: 12/17/2021 6:45 PM Age: 41 years old Clinical indication: Low back pain; Prior surgery; Surgery date: 6+ months; Surgery type: Lumbar; Additional info: Fall TECHNIQUE: Imaging protocol: Radiologic exam of the lumbosacral spine. Views: 2 or 3 views. COMPARISON: MR lumbar spine wo con* [id number] 08/22/2021 12:39 PM FINDINGS: Bones/joints: Mild lumbar spine levocurvature. Soft tissues: Unremarkable. XR/XR lumbar spine 2-3V* [id number] IMPRESSION: 1. Negative for fracture or dislocation. 2. Mild lumbar spine levocurvature.
[2021-12-17 19:03] VITALS: BP 139/94; PULSE 110; RESP 16; TEMP 37.3; O2SAT 99
--- NOTE | 2021-12-17 19:16 | ED_ITS ---
HPI - Fall General: Chief Complaint: Fall Stated Complaint: Fell, Lower Back and leg pain with numbness Time Seen by Provider: 12/17/21 19:16 History of Present Illness: 41-year-old male patient comes in today for concerns of pain radiating down his left extremity with some numbness in his foot. Patient does have a history of chronic back problems. Patient denies any loss of bowel or bladder control. Patient is alert and oriented and ambulates without any difficulty. Associated symptoms-after fall: Denies chest pain Review of Systems General: Reports: 10 or more systems reviewed and unremarkable except in HPI and below Const: Denies: fever(s) Card: Denies: chest pain Resp: Denies: dyspnea Musc: Reports: back pain Skin/Breast: Denies: rash Neuro: Reports: numbness in extremities PFS ED PFSH: Social History Smoking and tobacco status: current every day smoker smokeless tobacco History of recent travel: No Physical Exam Const: COMMON NORMALS: alert HENMT: COMMON NORMALS: normocephalic HEAD & SCALP: normocephalic Neck/C-Spine: COMMON NORMALS: no lymphadenopathy Resp: COMMON NORMALS: normal respiratory effort Cardio: COMMON NORMALS: regular rate RATE: regular rate Extremity: COMMON NORMALS: normal to inspection Neuro: SENSORIUM/ORIENTATION: Yes alert Skin: COMMON NORMALS: no rashes or lesions noted GENERAL SKIN EXAM: no rashes or lesions noted Course Vital Signs: Vital signs: Vital Signs Temperature 99.1 F 12/17/21 19:03 Pulse Rate 110 H 12/17/21 19:03 Respiratory Rate 16 12/17/21 19:03 Blood Pressure 139/94 12/17/21 19:03 Pulse Oximetry 99 12/17/21 19:03 MDM - Fall Medical Decision Making 41-year-old male patient comes in today with pain to the left leg and numbness to the foot. Patient fallen yesterday while crossing a gait. Patient does have a history of chronic back problems. On exam there is no signs of cauda equina syndrome. Pulses and sensation are in intact to lower extremity. Vital signs are normal. Differential diagnosis includes intervertebral disc disease, facet arthropathy, lumbar radiculopathy. Reviewed exam with patient with recommendations for continuing routine care and following up with Dr. Flores for no improvement of symptoms for possible repeat MRI. Lab Data Radiology Impressions Lumbar Spine X-Ray 12/17/21 18:13 IMPRESSION: 1. Negative for fracture or dislocation. 2. Mild lumbar spine levocurvature. Discharge Plan Discharge Patient Disposition: Home Clinical Impression: Left lumbar radiculopathy Condition: Stable Prescriptions: No Action divalproex [Depakote] 500 mg tablet,delayed release (DR/EC) 1,000 mg PO ONCE Qty: 60 5RF levetiracetam [Keppra XR] 750 mg tablet extended release 24 hr 1,500 mg PO DAILY Qty: 60 5RF Rx Instructions: Take 2 tablets daily hydrocodone-acetaminophen 10-325 mg Tablet 1 tab PO Q8H PRN (Reason: Pain) 0RF Cymbalta 60 mg Capsule,Delayed Release(Dr/Ec) 60 mg PO DAILY 0RF diclofenac sodium 75 mg tablet,delayed release (DR/EC) 75 mg PO BID Qty: 20 0RF Discharge Orders: Discharge ED (Routine); Ordered 12/17/21 Ordered By: Bladimir Rivera Referrals: Nolan Flores MD [Primary Care Provider] - Discharge Diet: Usual diet Discharge Activity: Increase activity as tolerated Patient Instructions: Lumbar Radiculopathy (ED) Activity Restrictions/Additional Instructions: Gentle stretching and range of motion exercises. Continue with routine medications as directed. Drink plenty of water with medications. Follow-up with Dr. Flores for further evaluation and treatment. Coding Level of Care Code ED Shirt Ironer Supervisor for Tomás Farah
== END 2021-12-17 19:38 | disposition home or self-care (01) ==
PROVIDERS: Emergency Provider Nurse Practitioner Family; PCP Family Medicine
DX: M54.16 Radiculopathy, lumbar region (principal); Z91.81 History of falling; Z79.891 Long term (current) use of opiate analgesic
CPT/HCPCS: 72100; 99283

== ENCOUNTER → 2022-01-23 12:55 | Outpatient (BNVA) | payer MEDICAID, SELFPAY | PROVIDERS: PCP Family Medicine; Visit Provider Specialist | DX: G62.89 Other specified polyneuropathies (principal); M54.50 Low back pain, unspecified | CPT/HCPCS: 95909; 95911 ==

== ENCOUNTER 2023-01-29 16:56 | Emergency (ER) | payer BC, MEDICAID, SELFPAY ==
[2023-01-29 17:27] VITALS: BP 135/81; PULSE 90; RESP 16; TEMP 36.9; O2SAT 99
--- NOTE | 2023-01-29 20:07 | XRR_ITS ---
PROCEDURE INFORMATION: Exam: XR Lumbosacral Spine Exam date and time: 01/29/2023 8:21 PM Age: 42 years old Clinical indication: Low back pain; Additional info: Low back pain after tree branch fell and hit low back TECHNIQUE: Imaging protocol: Radiologic exam of the lumbosacral spine. Views: 2 or 3 views. COMPARISON: CR XR lumbar spine 2-3V* [id number] 12/17/2021 6:45 PM FINDINGS: Bones/joints: Normal. No acute fracture. Normal alignment. Soft tissues: Unremarkable. XR/XR lumbar spine 2-3V* [id number] IMPRESSION: No acute findings.
--- NOTE | 2023-01-29 20:09 | W.ED.EXTPRO ---
HPI - Extremity Problem General: Chief complaint: Extremity Problem,Nontraumatic Stated complaint: left leg/ankle pain Time Seen by Provider: 01/29/23 19:59 History of Present Illness: Patient is a 42-year-old male who comes to the ED with low back pain. Patient has chronic lower back pain and is currently on hydrocodone to help with pain. He states that 2 days ago he was cutting some branches down and one of the tree branches fell down and hit his lower back. Since injury he is been having worsening lower back pain that radiates down to his left leg. He describes the pain in his leg as a stinging type pain that shoots down his entire leg. Patient rates his pain currently 8 out of 10. Patient was at [facility] yesterday for same complaints as he got a shot of Toradol and Decadron. denies any acute bladder or bowel incontinence, pelvic anesthesia or any weakness to lower extremities. Associated symptoms: Deny chest pain, fever(s) or rash Review of Systems Const: Denies: fever(s), chills or fatigue Eyes: Denies: change in vision or eye discomfort ENMT: Denies: throat pain, odynophagia, nasal discharge or nasal congestion Card: Denies: chest pain, palpitations, edema, swelling of feet/ankles, dyspnea on exertion or orthopnea Resp: Denies: dyspnea, productive cough or non-productive cough GI: Denies: abdominal pain, nausea, vomiting, diarrhea, constipation or hematochezia : Denies: flank pain, difficulty urinating, dysuria or hematuria Musc: Reports: back pain; Denies: neck pain or extremity swelling Skin/Breast: Denies: rash or new lesions Neuro: Denies: headache(s), numbness in extremities or weakness in extremities [facility] ED PFSH: Medical History (Updated 01/29/23 @ 20:59 by TANIA Mike) Chronic lower back pain No pertinent family history Social History Smoking and tobacco status: never smoked Physical Exam Const: COMMON NORMALS: no acute distress, patient oriented x3, healthy appearing and alert HENMT: COMMON NORMALS: normocephalic HEAD & SCALP: normocephalic MOUTH: Normal oral and palatal mucosa present THROAT: posterior oropharynx normal and uvula midline Neck/C-Spine: COMMON NORMALS: supple GENERAL: Yes normal visual inspection Resp: COMMON NORMALS: normal respiratory effort, No retractions, No use of accessory muscles and clear to auscultation bilaterally AUSCULTATION: clear to auscultation bilaterally Cardio: COMMON NORMALS: regular rate, regular rhythm, S1 normal heart sound present, S2 normal heart sound present, No gallops present (Cardio), No clicks present (Cardio), No murmurs present (Cardio) and Peripheral pulses 2+ throughout RATE: regular rate RHYTHM: regular rhythm HEART SOUNDS: S1 normal heart sound present and S2 normal heart sound present PERIPHERAL PULSES: Peripheral pulses 2+ throughout GI: COMMON NORMALS: Normal to inspection, nondistended, normoactive bowel sounds present, Soft to palpation, non-tender and no masses PALPATION: Yes Soft to palpation : COMMON NORMALS: Yes no CVA tenderness BLADDER/KIDNEY EXAM: Yes no CVA tenderness Back/Pelvis: COMMON NORMALS: no CVA tenderness LUMBAR SPINE/LOWER BACK: Yes pain with ROM, Yes lumbar spinal tenderness Lumbar spinal tenderness location: L4 and L5 and Yes paraspinal muscle tenderness Lumbar paraspinal muscle tenderness: bilateral Extremity: COMMON NORMALS: normal to inspection Neuro: COMMON NORMALS: patient oriented x3 SENSORIUM/ORIENTATION: Yes alert GAIT: Yes Normal gait present Skin: GENERAL SKIN EXAM: dry skin Course Vital Signs: Vital signs: Vital Signs Temperature 98.4 F 01/29/23 17:27 Pulse Rate 90 01/29/23 17:27 Respiratory Rate 16 01/29/23 17:27 Blood Pressure 135/81 01/29/23 17:27 Pulse Oximetry 99 01/29/23 17:27 Oxygen Delivery Me thod Room Air 01/29/23 17:27 MDM - Extremity (Nontraumatic) Medical Decision Making Patient is a 42-year-old male who comes to the ED with low back pain. Patient has chronic lower back pain and is currently on hydrocodone to help with pain. He states that 2 days ago he was cutting some branches down and one of the tree branches fell down and hit his lower back. Since injury he is been having worsening lower back pain that radiates down to his left leg. He describes the pain in his leg as a stinging type pain that shoots down his entire leg. Patient rates his pain currently 8 out of 10. Patient was at [facility] yesterday for same complaints as he got a shot of Toradol and Decadron. denies any acute bladder or bowel incontinence, pelvic anesthesia or any weakness to lower extremities. Vitals are stable. Patient appears nontoxic in no acute distress. He is sitting comfortably on exam bed when I am in the room. He has some lumbar spinal tenderness around L4 and L5 and bilateral lumbar paraspinal muscle tenderness. Rest of exam is benign. X-ray of the lumbar spine showed no acute findings. He was given a dose of morphine and steroid shot here in the ED. He was stable for discharge home and I placed an order with case management for patient be referred to Dr. Ledesma for follow-up on his chronic lower back pain issues. He was diagnosed with lumbar radiculopathy and sent home with a prescription for Medrol Dosepak. He states he is allergic to all of the muscle relaxers so I did not send him home with 1 of those. He already has hydrocodone for pain at home. Return ED precautions given. Patient understood and agreed with plan Lab Data Radiology Impressions Lumbar Spine X-Ray 01/29/23 20:07 IMPRESSION: No acute findings. Discharge Plan Discharge Patient Disposition: Home Clinical Impression: Left lumbar radiculopathy Condition: Stable Prescriptions: New Medrol (Kvng) 4 mg tablets,dose pack See Rx Instructions .ROUTE .COMPLEX Qty: 21 0RF Rx Instructions: orally per package directions No Action divalproex [Depakote] 500 mg tablet,delayed release (DR/EC) 1,000 mg PO ONCE Qty: 180 3RF levetiracetam [Keppra XR] 750 mg tablet extended release 24 hr 1,500 mg PO DAILY Qty: 180 3RF Rx Instructions: Take 2 tablets daily acetaminophen-codeine 300-30 mg tablet 1 tab PO BID PRN tizanidine 4 mg capsule 4 mg PO BID PRN Cymbalta 60 mg Capsule,Delayed Release(Dr/Ec) 60 mg PO DAILY Discharge Orders: Discharge ED (Routine); Ordered 01/29/23 Ordered By: Hector Day Referrals: Nolan Flores MD [Primary Care Provider] - Discharge Diet: Regular Discharge Activity: Increase activity as tolerated Patient Instructions: Lumbar Radiculopathy (ED) Activity Restrictions/Additional Instructions: Follow-up with medical provider as directed. Case management regarding your neck several days to set up an appointment with orthospine specialist Dr. Ledesma. Take medications as prescribed. Stretch lower back muscles daily to help with symptoms. Return to the ER or your medical provider if condition worsens. Please read and understand discharge instructions. Thank you for choosing [facility] for your healthcare needs today. Please realize this is an emergency room and that we are providing you with a medical screening exam and this may not be complete and all inclusive of all the testing and or work up that you may need to determine your ailment or severity of your illness. It is very important that you follow up as instructed or that you return to the Emergency Department should you have concerns or if your condition changes or worsens in any way. Coding Level of Care Code ED Hot Repairman for Tomás Farah
[2023-01-29] MEDS: morphine 4 mg/mL SDV 1 mL IM (20:34)
[2023-01-29] MEDS: methylPREDNISolone (DEPO) 80 MG/ML INJ 1 mL IM (20:34)
[2023-01-29] MEDS: HYDROmorphone 1 mg/mL INJ 1 mL IM (21:10)
--- NOTE | 2023-01-30 10:12 | DCPLANNER ---
Addendum entered by Chari Mora 02/04/23 09:12: manager rn received the following message from the ortho clinic regarding follow up appointment: spoke to patient - he stated he actually lives in [place] and he will be going back home on Friday. We unfortunely cant get him in until after he is gone as providers are out the rest of the week. He asked if you might be able to reach out to him to help him get referred to some place else. He said back home they always send him to neurologist and he wants a spine surgeon. The best call back number for him is manager rn called patient, he is going to follow up with his primary care physician. Original Note: manager rn had message to schedule a follow up appointment for patient with ortho. manager rn sent patients information to the front office staff at ortho. Patients information will be printed and reviewed. Clinic will call patient with appointment information.
== END 2023-01-29 21:14 | disposition home or self-care (01) ==
PROVIDERS: Emergency Provider Physician Assistant; PCP Family Medicine
DX: M54.16 Radiculopathy, lumbar region (principal)
CPT/HCPCS: 72100; 96372; 99284; J1040; J1170; J2270